=== PATIENT | female | born 1970 ===

== ENCOUNTER 2017-09-27 23:54 | Inpatient (IN) | payer MEDICAID ==
[2017-09-27 23:55] VITALS: BMI 24.9
[2017-09-28] MEDS ORDERED: Sodium Chloride 0.9% 1,000 ML IV STA (00:29)
[2017-09-28 00:49] LABS: BASO % 0.4 % (0.0-2.0); EOS % 0.5 % (0.0-4.0); HEMATOCRIT 44.6 % (34.0-47.0); LYMPH # 2.7 K/uL (1.0-4.3); LYMPH % 52.5 % (20.0-40.0); MEAN CELL VOLUME 96.8 fl (81.0-99.0); MEAN CORPUSCULAR HEMOGLOBIN 32.4 pg (27.0-31.0); MEAN CORPUSCULAR HGB CONC 33.5 g/dL (33.0-37.0); MEAN PLATELET VOLUME 7.5 fl (7.2-11.7); MONO # 0.4 K/uL (0.0-0.8); MONO % 8.6 % (0.0-10.0); NEUT # 1.9 K/uL (1.8-7.0); RED CELL DISTRIBUTION WIDTH 13.9 % (11.5-14.5); WHITE BLOOD COUNT 5.1 K/uL (4.8-10.8)
[2017-09-28 01:01] LABS: ALB/GLOB RATIO 1.3 (1.0-2.1); ALKALINE PHOSPHATASE 123 U/L (38-126); ALT/SGPT 36 U/L (9-52); AST/SGOT 40 U/L (14-36); BILIRUBIN,TOTAL 0.3 mg/dl (0.2-1.3); BLOOD UREA NITROGEN 18 mg/dl (7-17); CALCIUM 8.1 mg/dL (8.4-10.2); CARBON DIOXIDE 26 mmol/L (22-30); CHLORIDE 110 mmol/L (98-107); GFR AFRICAN-AMERICAN > 60; GLUCOSE,RANDOM 88 mg/dL (65-105); POTASSIUM 3.5 MMOL/L (3.6-5.0); SODIUM 150 mmol/l (132-148); TOTAL PROTEIN 7.5 G/DL (6.3-8.2)
[2017-09-28 01:13] LABS: ALCOHOL SERUM 332 mg/dl (0-10)
[2017-09-28 01:14] LABS: PARTIAL THROMBOPLASTIN TIME 24.8 Seconds (25.6-37.1)
--- NOTE | 2017-09-28 02:26 | ED PDOC ---
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 Mother states patient had been drinking throughout the day and witnessed her swallow a handful of various pills. Mother denies knowing how many pills were ingested. Notes that among the pills were Norvir, Hydrochlorothiazide, and Vistaril. Reports that immediately after ingestion, patient vomited (pills visible in vomit) and had diarrhea. Mother states she then called 911. Upon ED arrival, patient is verbal but unable to clearly answer provider's questions. Admits to suicidal intent. PCP: Jana Alvares Past Medical History Reviewed: Historical Data, Nursing Documentation, Vital Signs Vital Signs: Last Vital Signs Temp 98.9 F 09/28/17 00:24 Pulse 95 H 09/28/17 00:24 Resp 16 09/28/17 00:24 BP 128/79 09/28/17 00:24 Pulse Ox 98 09/28/17 00:24 - Medical History PMH: Anxiety, Asthma, Depression, HIV, HTN Denies: Diabetes, Hepatitis, Chronic Kidney Disease, Seizures, Sexually Transmitted Disease - Surgical History Surgical History: Appendectomy - Family History Family History: States: Unknown Family Hx - Living Arrangements Living Arrangements: With Family - Social History Drugs: Prescription medications - Home Medications Home Medications: Ambulatory Orders Medication Instructions Recorded Albuterol HFA [Ventolin HFA 90 2 puff IH Q4H PRN 01/17/16 mcg/actuation (8 g)] Darunavir [Prezista] 800 mg PO DAILY 01/17/16 Emtricitabine/Tenofovir Diso 1 tab PO DAILY 01/17/16 [Truvada 200 MG-300 MG] Citalopram Hydrobromide [Celexa] 10 mg PO DAILY #30 tablet 01/20/16 Folic Acid 1 mg PO DAILY #0 tab 01/20/16 LORazepam [Ativan] 2 mg PO Q4H PRN #5 tab 01/20/16 Multivitamin [Multi-Vitamin Daily] 1 tab PO DAILY #0 tablet 01/20/16 Ritonavir [Norvir] 100 mg PO DAILY #0 cap 01/20/16 Thiamine [Vitamin B1 Tab] 100 mg PO DAILY #0 tab 01/20/16 Citalopram [celEXA] 40 mg PO DAILY #30 tab 04/15/16 Thiamine [Vitamin B1 Tab] 100 mg PO DAILY #30 tab 04/15/16 traZODone [Desyrel] 100 mg PO HS PRN #30 tab 04/15/16 chlordiazePOXIDE [Chlordiazepoxide 25 mg PO TID PRN #6 cap 10/05/16 HCl] - Allergies Allergies/Adverse Reactions: Allergies Allergy/AdvReac Type Severity Reaction Status Date / Time No Known Allergies Allergy Verified 10/05/16 13:55 Review of Systems Review Of Systems: ROS cannot be obtained secondary to pt's inabilty to answer questions. Physical Exam - Reviewed Nursing Documentation Reviewed: Yes Vital Signs Reviewed: Yes - Physical Exam Appears: Positive for: Non-toxic Head Exam: Positive for: ATRAUMATIC, NORMOCEPHALIC Cardiovascular/Chest: Positive for: Regular Rate, Rhythm. Negative for: Murmur Respiratory: Positive for: Normal Breath Sounds. Negative for: Respiratory Distress Gastrointestinal/Abdominal: Positive for: Normal Exam Extremity: Positive for: Normal ROM. Negative for: Deformity Neurologic/Psych: Positive for: Aphasia (slurred speech). Negative for: Alert, Oriented - Laboratory Results Result Diagrams: 09/28/17 00:45 09/28/17 00:45 - ECG O2 Sat by Pulse Oximetry: 98 (RA) Pulse Ox Interpretation: Normal - Critical Care Total Time (In Min): 30 Medical Decision Making Medical Decision Makin Initial impression: status post overdose with suicidal intent Initial plan: * EKG * Acetaminophen * EtOH serum * Labs * UDrug screen * Magnesium * Salicylate * Poison control consult * Crisis eval * UPreg * PTT/PT * NS IV * Zofran Inj 4mg IV * 1:1 OBS * Accucheck * UA * Re-eval 0039 Glucose: 97 0700 Patient will be signed out to Dr. Heard pending sobriety and crisis evaluation. Scribe Attestation: Documented by Ely Martinez acting as a scribe for Simone Gibson MD. Scribe Attestation: All medical record entries made by the Scribe were at my direction and personally dictated by me. I have reviewed the chart and agree that the record accurately reflects my personal performance of the history, physical exam, medical decision making, and the department course for this patient. I have also personally directed, reviewed, and agree with the discharge instructions and disposition. Disposition - Clinical Impression Clinical Impression: Drug overdose, Alcohol abuse - Patient ED Disposition Is Patient to be Admitted: Transfer of Care - Disposition Referrals: Esdras Gutierrez MD [Primary Care Provider] - Disposition: Transfer of Care Disposition Time: 07:00 Condition: FAIR Patient Signed Over To: Awais Heard Handoff Comments: pending crisis eval and sobriety
--- NOTE | 2017-09-28 07:23 | ED PDOC ---
- Laboratory Results Result Diagrams: 09/28/17 00:45 09/28/17 00:45 - ECG O2 Sat by Pulse Oximetry: 98 (RA) Medical Decision Making Medical Decision Makin -Patient transferred to pa by Dr. Gibson, pending sobriety and crisis evaluation. Medically stable for psychiatric admission Disposition - Clinical Impression Clinical Impression: Drug overdose, Alcohol abuse, Suicide attempt - POA Present On Arrival: None - Disposition Referrals: Esdras Gutierrez MD [Primary Care Provider] - Disposition: Admitted as In-Patient Disposition Time: 11:24 Condition: FAIR
[2017-09-28] MEDS ORDERED: Magnesium Hydroxide Susp 30 ml UD PO PRN (16:48)
[2017-09-28] MEDS ORDERED: DiphenhydrAMINE 50 mg/ml Inj IM PRN (16:48)
[2017-09-28] MEDS ORDERED: Alum-Mag Hydrox-Simethicone Susp (30 mL) PO PRN (16:48)
[2017-09-28] MEDS ORDERED: Pneumococcal 23-Valent Vaccine IM ONE (16:57)
--- NOTE | 2017-09-28 17:52 | PCM.BM ---
Treatment assets and liabiliti Patient Assests: cooperative, ADL independent, negotiates basic needs Patient Liabilities: substance abuse, medical problems
--- NOTE | 2017-09-28 17:54 | PCM.BM ---
Treatment assets and liabiliti Patient Assests: cooperative, ADL independent, negotiates basic needs Patient Liabilities: substance abuse, medical problems - Milieu Protocol Maintain good personal hygiene: daily Encourage regular showers, daily Remind patient to perform daily oral care, daily Assist patient to perform ADL's Maintain personal safety: every shift Educate patient to report safety concerns to staff, every shift Monitor environment for contraband/sharps Medication safety: Monitor for expected outcome, potential side effects: every shift, Assess barriers to learning: every shift, Assess readiness for medication education: every shift
--- NOTE | 2017-09-28 18:04 | PCM.BM ---
<Kylie García Stephanie - Last Filed: 09/28/17 17:54> Treatment assets and liabiliti Patient Assests: cooperative, ADL independent, negotiates basic needs Patient Liabilities: substance abuse, medical problems - Milieu Protocol Maintain good personal hygiene: daily Encourage regular showers, daily Remind patient to perform daily oral care, daily Assist patient to perform ADL's Maintain personal safety: every shift Educate patient to report safety concerns to staff, every shift Monitor environment for contraband/sharps Medication safety: Monitor for expected outcome, potential side effects: every shift, Assess barriers to learning: every shift, Assess readiness for medication education: every shift Family Contact Family involvement: Family/SO is involved Family contact: Patient agrees to contact - Goals for Treatment Patient goals for treatment: To feel better and less depressed <Talia Michelle - Last Filed: 09/30/17 16:33> Treatment assets and liabiliti Patient Assests: adapts well, cooperative, ADL independent, physically healthy, negotiates basic needs, cognitively intact Patient Liabilities: poor support system, relationship conflicts, substance abuse, medical problems, other (possible homelessness upon discharge) Family Contact Family involvement: Family/SO is involved Family contact: Patient agrees to contact Family contact name: Chuy(son) ([phone]) Family contacted how many times per week?: 2 Family contact comment: Director Of Collections And Archives placed call to patients son to discuss precursors to patients admission, progress on 3NP and aftercare. Phone rang without option for editorial writer to leave voicemail. Director Of Collections And Archives to attempt call at later time. - Goals for Treatment Patient goals for treatment: Patient to continue stabilization on 3NP through medication management and group/supportive therapy. Patient to be encouraged to attend groups regularly to promote self-awareness, sobriety, and improve insight , coping skills and self-esteem. Patient to be provided with referral for appropriate level of aftercare to reduce risk of future hospitalizations and ensure safety in the community. Discharge/Continuing Care - Education Needs Education Needs: Patient Medication, Patient Coping Skills, Patient Community resources, Patient Aftercare Safety Plan - Discharge Discharge Criteria: Tolerates medication w/o severe side effects, Free of Suicidal thoughts, Free of agitation, Normal sleep pattern, Ability to care for self, No longer exhibiting s/s of withdrawal, Reduction of target symptoms Discharge to:: Home, Snf, Substance Abuse Rehab, Other (possible [facility] referrals in the event patient refuses inpatient rehab) <Odilon Chang - Last Filed: 10/01/17 13:08> Discharge/Continuing Care - Additional Comments 10/01/17 13:09 Pt reported that she feels better. - Treatment Team Participation Was Patient/Family/SO present at Treatment Team Meeting: Yes <Khalida Morgan - Last Filed: 10/04/17 10:01> - Diagnosis (1) Alcohol abuse Status: Acute Interventions: 10/01/17 17:45 motivational therapy referral to rehab
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
[2017-09-28] MEDS ORDERED: Emtricitabine-Tenofovir 200 mg-300 mg Tab PO ONE (21:10)
[2017-09-28] MEDS: Fluticasone-Salmeterol 100-50mcg Diskus INH SCH (22:26)
[2017-09-28] MEDS: Albuterol-Ipratrop 3 mg / 0.5 (3 ml) UD INH SCH (22:36)
[2017-09-29] MEDS ORDERED: Potassium Chloride 20 mEq ER Tab PO ONE (01:17)
[2017-09-29] MEDS: Albuterol-Ipratrop 3 mg / 0.5 (3 ml) UD INH SCH ×3 (01:28→16:16)
[2017-09-29 07:31] LABS: BLOOD UREA NITROGEN 10 mg/dl (7-17); CALCIUM 8.8 mg/dL (8.4-10.2); CARBON DIOXIDE 27 mmol/L (22-30); CHLORIDE 107 mmol/L (98-107); CHOLESTEROL 118 mg/dL (0-199); GFR AFRICAN-AMERICAN > 60; GLUCOSE,RANDOM 99 mg/dL (65-105); POTASSIUM 3.8 MMOL/L (3.6-5.0); SODIUM 143 mmol/l (132-148)
--- NOTE | 2017-09-29 11:53 | CARD ---
APPROVED REPORT EKG Measurement Heart [id number] <Conclusion> Sinus tachycardia Otherwise normal ECG
--- NOTE | 2017-09-29 11:59 | CARD ---
APPROVED REPORT EKG Measurement Heart [id number] <Conclusion> Sinus rhythm with premature atrial complexes Otherwise normal ECG
[2017-09-29] MEDS: Fluticasone-Salmeterol 100-50mcg Diskus INH SCH ×2 (13:00→17:04)
[2017-09-29] MEDS: Multivitamin With Minerals Tab PO SCH (13:00)
[2017-09-29] MEDS: Emtricitabine-Tenofovir 200 mg-300 mg Tab PO SCH (13:01)
[2017-09-29] MEDS: Olopatadine 0.1% Opht SOLN OU SCH ×2 (13:11→17:15)
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
[2017-09-29] MEDS: Fluticasone-Salmeterol 250-50mcg Diskus IH SCH (21:10)
[2017-09-29] MEDS: Pantoprazole 40 mg EC Tab PO SCH (21:36)
[2017-09-29 23:15] VITALS: O2SAT 99
[2017-09-30] MEDS: Albuterol-Ipratrop 3 mg / 0.5 (3 ml) UD INH SCH ×2 (01:22→16:38)
[2017-09-30] MEDS: Multivitamin With Minerals Tab PO SCH (09:29)
[2017-09-30] MEDS: Emtricitabine-Tenofovir 200 mg-300 mg Tab PO SCH (09:29)
[2017-09-30] MEDS: Fluticasone-Salmeterol 250-50mcg Diskus IH SCH ×2 (09:34→21:23)
[2017-09-30] MEDS: Olopatadine 0.1% Opht SOLN OU SCH ×2 (09:35→17:11)
[2017-09-30] MEDS: Pantoprazole 40 mg EC Tab PO SCH (17:09)
--- NOTE | 2017-09-30 18:21 | CP.PCM.PN ---
Subjective - Date & Time of Evaluation Date of Evaluation: 09/30/17 Time of Evaluation: 18:15 - Subjective Subjective: pt seen for chest pain page. s:pt seen and examined at bedside, NAD. Talking in full sentences. No signs of respiratory distress. Non-diaphoretic. Chest pain is located suprasternally and is reproducible to palpation. Pt denies any radiating pain, epigastric pain, acidic sensation, back pain, SOB, palpitations, N/V, diaphoresis, leg/calf pain. vitals reviewed, HR at bedside 92bpm PE: Gen: AAOx3, NAD, CVS: S1S2+, No MRG Lungs: CTA B/L, no WRR, chest pain reproducible to palpation A/P: -costochrondritis -Motrin ordered -will continue to monitor Objective - Vital Signs/Intake and Output Vital Signs (last 24 hours): Temp Pulse Resp BP Pulse Ox 98.2 F 123 H 20 153/105 H 99 09/30/17 16:09 09/30/17 16:09 09/30/17 16:09 09/30/17 16:09 09/29/17 22:00 - Medications Medications: Current Medications Acetaminophen (Tylenol 325mg Tab) 650 mg PO Q4 PRN PRN Reason: Pain, moderate (4-7) Last Admin: 09/29/17 21:38 Dose: 650 mg Al Hydrox/Mg Hydrox/Simethicone (Maalox Plus 30 Ml) 30 ml PO Q4 PRN PRN Reason: Dyspepsia Albuterol (Ventolin Hfa 90 Mcg/Actuation (8 G)) 2 puff INH Q4 PRN PRN Reason: Shortness of Breath Albuterol/Ipratropium (Duoneb 3 Mg/0.5 Mg (3 Ml) Ud) 3 ml INH RQ8 EDUARDO Last Admin: 09/30/17 16:38 Dose: 3 ml Aripiprazole (Abilify) 10 mg PO DAILY [facility] Chlordiazepoxide (Librium) 50 mg PO Q8 EDUARDO Last Admin: 09/30/17 17:09 Dose: 50 mg Darunavir (Prezista) 800 mg PO DAILY [facility] Last Admin: 09/30/17 09:29 Dose: 800 mg Diphenhydramine HCl (Benadryl) 50 mg IM Q6 PRN PRN Reason: Extrapyramidal S/S Unable PO Diphenhydramine HCl (Benadryl) 50 mg PO Q6 PRN PRN Reason: Extrapyramidal Symptoms Emtricitabine/Tenofovir (Truvada 200 Mg-300 Mg) 1 tab PO DAILY [facility] Last Admin: 09/30/17 09:29 Dose: 1 tab Enalapril Maleate (Vasotec) 10 mg PO DAILY [facility] Last Admin: 09/30/17 09:29 Dose: 10 mg Escitalopram Oxalate (Lexapro) 5 mg PO DAILY [facility] Last Admin: 09/30/17 09:29 Dose: 5 mg Folic Acid (Folic Acid) 1 mg PO DAILY [facility] Last Admin: 09/30/17 09:29 Dose: 1 mg Haloperidol (Haldol) 5 mg PO Q4 PRN PRN Reason: Agitation Haloperidol Lactate (Haldol) 5 mg IM Q4 PRN PRN Reason: Agitation, Unable to Take PO Ibuprofen (Motrin Tab) 600 mg PO Q8 PRN PRN Reason: Pain, moderate (4-7) Lorazepam (Ativan) 2 mg IM Q4 PRN PRN Reason: Anxiety/Agitation,Unable PO Lorazepam (Ativan) 2 mg PO Q4 PRN PRN Reason: Anxiety/Agitation Last Admin: 09/29/17 07:02 Dose: 2 mg Magnesium Hydroxide (Milk Of Magnesia) 30 ml PO HS PRN PRN Reason: Constipation Mirtazapine (Remeron) 15 mg PO HS [facility] Last Admin: 09/29/17 21:36 Dose: 15 mg Multivitamins/Minerals (Therapeutic-M Tab) 1 tab PO DAILY [facility] Last Admin: 09/30/17 09:29 Dose: 1 tab Olopatadine HCl (Patanol 0.1% Opht Soln) 1 drop OU BID [facility] Last Admin: 09/30/17 17:11 Dose: Not Given Pantoprazole Sodium (Protonix Ec Tab) 40 mg PO QPM [facility] Last Admin: 09/30/17 17:09 Dose: 40 mg Ritonavir (Norvir) 100 mg PO DAILY [facility] Last Admin: 09/30/17 09:28 Dose: 100 mg Fluticasone/Salmeterol (Advair Diskus 250/50) 1 puff IH Q12 [facility] Last Admin: 09/30/17 09:34 Dose: Not Given Thiamine HCl (Vitamin B1 Tab) 100 mg PO DAILY EDUARDO Last Admin: 09/30/17 09:29 Dose: 100 mg - Labs Labs: 09/28/17 00:45 09/29/17 06:30 PT 11.4 Seconds (9.8-13.1) 09/28/17 00:45 INR 1.0 (0.9-1.2) 09/28/17 00:45 APTT 24.8 Seconds (25.6-37.1) L 09/28/17 00:45
--- NOTE | 2017-09-30 18:32 | PCM.PYCHPN ---
Psychiatric Progress Note - Psychiatric Progress Note Patient seen today, length of contact: pt evaluated discussed with team chart reviewed Patient Chief Complaint: I AM DEPRESSED I HAVE NO PLACE TO GO Problems Identified/Issues Discussed: PT ON EVALUATION REPORTED DEPRESSED MOOD AND INCREASED ANXIETY, RELATES THAT TO HER CURRENT SITUATION NEITHER HER SON NOR HER MOTHER ARE ACCEPTING HER BACK SO SHE IS CURRENTLY HOMELESS, PT SHOWS LIMITED INSIGHT INTO HER ALCOHOL USE PROBLEM , CONTINUES TO BE ISOLATIVE NEEDS A LOT OF ENCORAGMENT TO ATTEND GROUPS , DENIED ANY CURRENT SUICIDAL OR HOMICIDAL IDEATIONS DENIED PERCEPTUAL DISTURBANCES NO REPORTED SIDE EFFECTS OF MEDICATIONS DSM 5 Symptoms Update: ALCOHOL INDUCED MOOD DISORDER WITH DEPRESSIVE FEATURES ALCOHOLUSE DISORDER DEPRESSION Medication Change: Yes (INCREASE ABILIFY DISCONTINUE LEXAPRO) Medical Record Reviewed: Yes Mental Status Examination - Cognitive Function Orientation: Person, Place Memory: Intact Attention: WNL Concentration: WNL Association: WNL Fund of Knowledge: Poor Decription of patient's judgement and insights: POOR IJUDGMENT LIMITED INSIGHT - Mood Mood: Depressed, Anxious - Affect Affect: Constricted, Depressed - Speech Speech: Soft - Formal Thought Process Formal Thought Process: Circumstantial Psychotic Thoughts and Behaviors: PT DENIED PSYCHOTIC SYMPTOMS NON ELICITED - Suicidal Ideation Suicidal Ideation: No - Homicidal Ideation Homicidal Ideation: No Goal/Treatment Plan - Goal/Treatment Plan Need for Continued Stay: Severe depression anxiety, Discharge may exacerbated symptoms Progress Toward Problem(s) and Goals/Treatment Plan: CONTINUE WITH LIBRIUM PROTOCOL, MONITOR PT FOR SYMPTOMS AND SIGNS OF WITHDRAWAL REMERON 15MG INCREASE ABILIFY TO 10 MG , DISCONTINUE LEXAPRO CBT AND MOTIVATIONAL THERAPY REFERRAL TO REHAB ON DISCHARGE Estimated Date of D/C: 10/06/17
[2017-10-01] MEDS: Albuterol-Ipratrop 3 mg / 0.5 (3 ml) UD INH SCH ×3 (01:03→17:03)
[2017-10-01] MEDS: Emtricitabine-Tenofovir 200 mg-300 mg Tab PO SCH (09:19)
[2017-10-01] MEDS: Multivitamin With Minerals Tab PO SCH (09:19)
[2017-10-01] MEDS: Fluticasone-Salmeterol 250-50mcg Diskus IH SCH ×2 (09:20→21:21)
[2017-10-01] MEDS: Olopatadine 0.1% Opht SOLN OU SCH ×2 (09:29→18:12)
--- NOTE | 2017-10-01 16:04 | CP.PCM.PN ---
Subjective - Date & Time of Evaluation Date of Evaluation: 10/01/17 Time of Evaluation: 15:00 - Subjective Subjective: Pt. seen at bedside lying down with covers on. Pt. awakes on calling her name outloud. Pt. with no complaints at this time. No overnight event reported. Pt. states she is doing well. Objective - Vital Signs/Intake and Output Vital Signs (last 24 hours): Temp Pulse Resp BP Pulse Ox 98.0 F 109 H 18 125/93 H 99 10/01/17 09:00 10/01/17 09:00 10/01/17 09:00 10/01/17 09:00 09/29/17 22:00 - Medications Medications: Current Medications Acetaminophen (Tylenol 325mg Tab) 650 mg PO Q4 PRN PRN Reason: Pain, moderate (4-7) Last Admin: 09/30/17 19:00 Dose: 650 mg Al Hydrox/Mg Hydrox/Simethicone (Maalox Plus 30 Ml) 30 ml PO Q4 PRN PRN Reason: Dyspepsia Albuterol (Ventolin Hfa 90 Mcg/Actuation (8 G)) 2 puff INH Q4 PRN PRN Reason: Shortness of Breath Albuterol/Ipratropium (Duoneb 3 Mg/0.5 Mg (3 Ml) Ud) 3 ml INH RQ8 [facility] Last Admin: 10/01/17 09:30 Dose: Not Given Aripiprazole (Abilify) 10 mg PO DAILY [facility] Last Admin: 10/01/17 09:19 Dose: 10 mg Chlordiazepoxide (Librium) 50 mg PO Q8 [facility] Last Admin: 10/01/17 09:22 Dose: 50 mg Darunavir (Prezista) 800 mg PO DAILY [facility] Last Admin: 10/01/17 09:19 Dose: 800 mg Diphenhydramine HCl (Benadryl) 50 mg IM Q6 PRN PRN Reason: Extrapyramidal S/S Unable PO Diphenhydramine HCl (Benadryl) 50 mg PO Q6 PRN PRN Reason: Extrapyramidal Symptoms Emtricitabine/Tenofovir (Truvada 200 Mg-300 Mg) 1 tab PO DAILY [facility] Last Admin: 10/01/17 09:19 Dose: 1 tab Enalapril Maleate (Vasotec) 10 mg PO DAILY [facility] Last Admin: 10/01/17 10:38 Dose: 10 mg Folic Acid (Folic Acid) 1 mg PO DAILY [facility] Last Admin: 10/01/17 09:19 Dose: 1 mg Haloperidol (Haldol) 5 mg PO Q4 PRN PRN Reason: Agitation Haloperidol Lactate (Haldol) 5 mg IM Q4 PRN PRN Reason: Agitation, Unable to Take PO Ibuprofen (Motrin Tab) 600 mg PO Q8 PRN PRN Reason: Pain, moderate (4-7) Lorazepam (Ativan) 2 mg IM Q4 PRN PRN Reason: Anxiety/Agitation,Unable PO Lorazepam (Ativan) 2 mg PO Q4 PRN PRN Reason: Anxiety/Agitation Last Admin: 09/29/17 07:02 Dose: 2 mg Magnesium Hydroxide (Milk Of Magnesia) 30 ml PO HS PRN PRN Reason: Constipation Mirtazapine (Remeron) 15 mg PO HS [facility] Last Admin: 09/30/17 21:23 Dose: 15 mg Multivitamins/Minerals (Therapeutic-M Tab) 1 tab PO DAILY [facility] Last Admin: 10/01/17 09:19 Dose: 1 tab Olopatadine HCl (Patanol 0.1% Opht Soln) 1 drop OU BID [facility] Last Admin: 10/01/17 09:29 Dose: 0.1 % Pantoprazole Sodium (Protonix Ec Tab) 40 mg PO QPM [facility] Last Admin: 09/30/17 17:09 Dose: 40 mg Ritonavir (Norvir) 100 mg PO DAILY [facility] Last Admin: 10/01/17 09:19 Dose: 100 mg Fluticasone/Salmeterol (Advair Diskus 250/50) 1 puff IH Q12 [facility] Last Admin: 10/01/17 09:20 Dose: 1 puff Thiamine HCl (Vitamin B1 Tab) 100 mg PO DAILY [facility] Last Admin: 10/01/17 09:19 Dose: 100 mg - Labs Labs: 09/28/17 00:45 09/29/17 06:30 PT 11.4 Seconds (9.8-13.1) 09/28/17 00:45 INR 1.0 (0.9-1.2) 09/28/17 00:45 APTT 24.8 Seconds (25.6-37.1) L 09/28/17 00:45 - Constitutional Appears: Non-toxic, No Acute Distress - Head Exam Head Exam: ATRAUMATIC, NORMOCEPHALIC - Eye Exam Eye Exam: Normal appearance. absent: Scleral icterus - Neck Exam Neck Exam: Full ROM - Respiratory Exam Respiratory Exam: Clear to Ausculation Bilateral, NORMAL BREATHING PATTERN - Cardiovascular Exam Cardiovascular Exam: REGULAR RHYTHM, +S1, +S2 - GI/Abdominal Exam GI & Abdominal Exam: Soft. absent: Tenderness - Extremities Exam Extremities Exam: Normal Capillary Refill. absent: Calf Tenderness - Neurological Exam Neurological Exam: Alert, Awake, Oriented x3 - Psychiatric Exam Psychiatric exam: Flat Affect Assessment and Plan - Assessment and Plan (Free Text) Assessment: 46 y/o F with PMHx of HIV infection w/o AIDS, Asthma, Hypertension, Depression , Anxiety, alcohol abuse being admitted in Psych unit for suicidal attempt. Plan: Asthma- Stable -Mild persistent asthma -Duoneb PRN -c/w Advair Abnormal electrolytes- Resolved -K+: 143 -NA+: 3.8 HTN- stable -c/w home enalapril 10 mg HIV -c/w [id number] therapy Alcohol abuse - -CIWA score 0 -Discontinue Librium -Ativan PRN Diet -Regular Depression with Suicidal Attempt -manage by Psych DVT prophylaxis -encourage ambulation
--- NOTE | 2017-10-01 17:50 | PCM.PYCHPN ---
Psychiatric Progress Note - Psychiatric Progress Note Patient seen today, length of contact: pt evaluated discussed with team chart reviewed Patient Chief Complaint: I AM worried about my living situation Problems Identified/Issues Discussed: PT ON EVALUATION, MORE KEMPT AND LESS ISOLATIVE, ATTENDING GROUPS, REPORTED MOOD LESS DEPRESSED, CONTINUES TO BE ANXIOUS IN REFERENCE TO HER LIVING SITUATION, DENIED ANY CURRENT SUICIDAL OR HOMICIDAL IDEATIONS DENIEDD PERCEPTUAL DISTURBANCES, REPORTED FEELING BETTER WITH ABILIFY NO REPORTED SIDE EFFECTS OF MEDICATIONS Medication Change: No Medical Record Reviewed: Yes Mental Status Examination - Cognitive Function Orientation: Person, Place Memory: Intact Attention: WNL Concentration: WNL Association: WNL Fund of Knowledge: Poor Decription of patient's judgement and insights: POOR IJUDGMENT LIMITED INSIGHT - Mood Mood: Depressed, Anxious, Neutral - Affect Affect: Constricted, Depressed - Speech Speech: Appropriate, Soft - Formal Thought Process Formal Thought Process: Circumstantial Psychotic Thoughts and Behaviors: PT DENIED PSYCHOTIC SYMPTOMS NON ELICITED - Suicidal Ideation Suicidal Ideation: No - Homicidal Ideation Homicidal Ideation: No Goal/Treatment Plan - Goal/Treatment Plan Need for Continued Stay: Severe depression anxiety, Discharge may exacerbated symptoms Progress Toward Problem(s) and Goals/Treatment Plan: REMERON 15MG CONTINUE ABILIFY 10 MG CBT AND MOTIVATIONAL THERAPY REFERRAL TO REHAB ON DISCHARGE Estimated Date of D/C: 10/06/17
[2017-10-02] MEDS: Fluticasone-Salmeterol 250-50mcg Diskus IH SCH ×2 (09:48→21:03)
[2017-10-02] MEDS: Emtricitabine-Tenofovir 200 mg-300 mg Tab PO SCH (09:50)
[2017-10-02] MEDS: Olopatadine 0.1% Opht SOLN OU SCH ×2 (09:52→18:23)
--- NOTE | 2017-10-02 13:43 | PCM.PYCHPN ---
Psychiatric Progress Note - Psychiatric Progress Note Patient seen today, length of contact: pt evaluated discussed with team chart reviewed Patient Chief Complaint: I AM LESS ANXIOUS Problems Identified/Issues Discussed: PT ON EVALUATION, MORE KEMPT AND LESS ISOLATIVE, ATTENDING GROUPS, REPORTED MOOD LESS DEPRESSED, CONTINUES TO BE ANXIOUS IN REFERENCE TO HER LIVING SITUATION, DENIED ANY CURRENT SUICIDAL OR HOMICIDAL IDEATIONS DENIEDD PERCEPTUAL DISTURBANCES, REPORTED FEELING BETTER WITH ABILIFY NO REPORTED SIDE EFFECTS OF MEDICATIONS Medication Change: No Medical Record Reviewed: Yes Mental Status Examination - Cognitive Function Orientation: Person, Place Memory: Intact Attention: WNL Concentration: WNL Association: WNL Fund of Knowledge: Poor Decription of patient's judgement and insights: POOR IJUDGMENT LIMITED INSIGHT - Mood Mood: Depressed, Anxious, Neutral - Affect Affect: Constricted, Depressed - Speech Speech: Appropriate, Soft - Formal Thought Process Formal Thought Process: Circumstantial Psychotic Thoughts and Behaviors: PT DENIED PSYCHOTIC SYMPTOMS NON ELICITED - Suicidal Ideation Suicidal Ideation: No - Homicidal Ideation Homicidal Ideation: No Goal/Treatment Plan - Goal/Treatment Plan Need for Continued Stay: Severe depression anxiety, Discharge may exacerbated symptoms Progress Toward Problem(s) and Goals/Treatment Plan: REMERON 15MG CONTINUE ABILIFY 10 MG CBT AND MOTIVATIONAL THERAPY REFERRAL TO REHAB ON DISCHARGE Estimated Date of D/C: 10/06/17
[2017-10-02 16:32] VITALS: RESP 20
[2017-10-03] MEDS: Albuterol HFA 90 mcg/actuation (8 g) INH PRN ×2 (05:41→15:28)
[2017-10-03] MEDS: Emtricitabine-Tenofovir 200 mg-300 mg Tab PO SCH (08:40)
[2017-10-03] MEDS: Fluticasone-Salmeterol 250-50mcg Diskus IH SCH ×2 (08:41→21:03)
[2017-10-03] MEDS: Olopatadine 0.1% Opht SOLN OU SCH ×2 (08:41→18:39)
--- NOTE | 2017-10-03 12:25 | PCM.PYCHPN ---
Psychiatric Progress Note - Psychiatric Progress Note Patient seen today, length of contact: pt evaluated discussed with team chart reviewed Patient Chief Complaint: I am feeling better today Problems Identified/Issues Discussed: PT ON EVALUATION, MORE KEMPT AND LESS ISOLATIVE, ATTENDING GROUPS, REPORTED MOOD LESS DEPRESSED, CONTINUES FEELS LESS ANXIOUS SHE WAS ABLE TO LIVE WITH A FRIEND UPON DISCHARGE DENIED ANY CURRENT SUICIDAL OR HOMICIDAL IDEATIONS DENIEDD PERCEPTUAL DISTURBANCES, NO REPORTED SIDE EFFECTS OF MEDICATIONS DSM 5 Symptoms Update: BIPOLAR DISORDER ALCOHOL USE DISORDER Medication Change: Yes (DECREASE REMERON) Medical Record Reviewed: Yes Mental Status Examination - Cognitive Function Orientation: Person, Place Memory: Intact Attention: WNL Concentration: WNL Association: WNL Fund of Knowledge: Poor Decription of patient's judgement and insights: POOR IJUDGMENT LIMITED INSIGHT - Mood Mood: Depressed, Anxious, Neutral - Affect Affect: Constricted, Depressed - Speech Speech: Appropriate - Formal Thought Process Formal Thought Process: No Impairment Psychotic Thoughts and Behaviors: PT DENIED PSYCHOTIC SYMPTOMS NON ELICITED - Suicidal Ideation Suicidal Ideation: No - Homicidal Ideation Homicidal Ideation: No Goal/Treatment Plan - Goal/Treatment Plan Need for Continued Stay: Severe depression anxiety, Discharge may exacerbated symptoms Progress Toward Problem(s) and Goals/Treatment Plan: DECREASE REMERON TO 7.5 MG QHS CONTINUE ABILIFY 10 MG CBT AND MOTIVATIONAL THERAPY REFERRAL TO REHAB ON DISCHARGE Estimated Date of D/C: 10/06/17
[2017-10-04 07:06] LABS: RBC URINE < 1 /hpf (0-3); URINE BILIRUBIN NEGATIVE (NEGATIVE); URINE BLOOD NEGATIVE (NEGATIVE); URINE COLOR STRAW (YELLOW); URINE GLUCOSE (UA) NEG (Normal); URINE KETONE NEGATIVE (NEGATIVE); URINE LEUKOCYTE ESTERASE NEG Leu/uL (Negative); URINE PROTEIN NEGATIVE (NEGATIVE); URINE UROBILINOGEN 0.2-1.0 mg/dL (0.2-1.0); WBC URINE < 1 /hpf (0-5)
[2017-10-04] MEDS: Emtricitabine-Tenofovir 200 mg-300 mg Tab PO SCH (08:43)
[2017-10-04] MEDS: Fluticasone-Salmeterol 250-50mcg Diskus IH SCH (08:45)
[2017-10-04 09:32] VITALS: BP 133/95; PULSE 94; TEMP 96.6
--- NOTE | 2017-10-04 11:29 | PCM.PYCHDC ---
Mental Status Examination - Mental Status Examination Orientation: Person, Place Memory: Intact Mood: Neutral Affect: Broad Speech: Appropriate Attention: WNL Concentration: WNL Association: WNL Fund of Knowledge: WNL Formal Thought Process: No Impairment Description of patient's judgement and insight: partial insight and poor judgment Psychotic Thoughts and Behaviors: PT DENIED PSYCHOTIC SYMPTOMS NON ELICITED Suicidal Ideation: No Current Homicidal Ideation?: No Discharge Summary - Discharge Note Reason for Hospitalization: PT SIGNED VOLUNTARY atient is a 46 y/o female referred by police/EMS after patient was found outside her mother's building intoxicated, naked snd with feces in her body. Patient attempted suicide by injesting a hand full of pills in the presence of her mother. Patient stated that she had an argument with her son causing her to drink and attempted suicide. Patient is presently in treatment at the [facility] under the care of Mika Gunderson. attempted many times. Patient admitted getting violent when she is intoxicated. PT RELATED HER RECENT DEPRESSION TO CONFLICT WITH HER FAMILY CONTINUES TO REPORT PASSIVE SUICIDAL IDEATION STATING SHE HAS NO DESIRE TO LIVE WITH NO PLAN ON THE UNIT .DENIED HOMICIDAL IDEATIONS DENIED PSYCHOTIC SYMPTOMS Laboratory Data: Abnormal Lab Results 10/04/17 06:40 Urine Color Straw Urine Clarity Clear Urine pH 6.0 Ur Specific [place] 1.008 Urine Protein Negative Urine Glucose (UA) Neg Urine Ketones Negative Urine Blood Negative Urine Nitrate Negative Urine Bilirubin Negative Urine Urobilinogen 0.2-1.0 Ur Leukocyte Esterase Neg Urine RBC (Auto) < 1 Urine Microscopic WBC < 1 Ur Squamous Epith Cells < 1 Consultations:: List each consultation separately and include: 1. Reason for request. 2. Findings. 3. Follow-up Summary of Hospital Course include:: 1. Description of specific treatment plan utilized for patients during their course of treatmen. 2. Summarize the time- course for resolution of acute symptoms and/or regressed behaviors. 3. Describe issues identified and worked on during hospitalization. 4. Describe medication utilized. 5. Describe medical problems identified and treated. 6. Reassessment of suicide risk Summary of Hospital Course: Patient is a 46 y/o female referred by police/EMS after patient was found outside her mother's building intoxicated, naked snd with feces in her body. Patient attempted suicide by injesting a hand full of pills in the presence of her mother. Patient stated that she had an argument with her son causing her to drink and attempted suicide. Patient is presently in treatment at the [facility] in [place] under the care of Mika Gunderson. attempted many times. Patient admitted getting violent when she is intoxicated. PT RELATED HER RECENT DEPRESSION TO CONFLICT WITH HER FAMILY CONTINUES TO REPORT PASSIVE SUICIDAL IDEATION STATING SHE HAS NO DESIRE TO LIVE WITH NO PLAN ON THE UNIT .DENIED HOMICIDAL IDEATIONS DENIED PSYCHOTIC SYMPTOMS - Diagnosis (1) Alcohol abuse Current Visit: Yes Status: Acute - Final Diagnosis (DSM 5) Condition upon Discharge: STABLE DSM 5: bipolar disorder alcohol use disorder alcohol induced mood disorder Disposition: HOME/ ROUTINE Follow-up Treatment Plan: follow up at outpatient Prescriptions/Medication Reconciliation: ARIPiprazole [Abilify] 10 mg PO DAILY 30 Days #30 tab Mirtazapine [Remeron] 7.5 mg PO HS 30 Days #15 tab - Antipsychotic Medications Pt discharged on 2 or more routine antipsychotic medications: No
== END 2017-10-04 13:30 | disposition home or self-care (01) | DRG 430 ==
LOC: H.ER 23:54 → H.ERHOLD 09-28 11:25 → H.PSYCH 09-28 15:40
PROVIDERS: ADMIT Psychiatry & Neurology Psychiatry; ATTEND Psychiatry & Neurology Psychiatry
PROC: GZHZZZZ Group Psychotherapy (ICD-10-PCS; principal; 2017-09-28)
PROC: HZ52ZZZ Individual Psychotherapy for Substance Abuse Treatment, Cognitive-Behavioral (ICD-10-PCS; 2017-09-28)
PROC: HZ57ZZZ Individual Psychotherapy for Substance Abuse Treatment, Motivational Enhancement (ICD-10-PCS; 2017-09-28)
DX: F31.9 Bipolar disorder, unspecified (principal); F10.94 Alcohol use, unspecified with alcohol-induced mood disorder; I10 Essential (primary) hypertension; Z21 Asymptomatic human immunodeficiency virus [HIV] infection status; F10.929 Alcohol use, unspecified with intoxication, unspecified; J45.30 Mild persistent asthma, uncomplicated; Y90.8 Blood alcohol level of 240 mg/100 ml or more; Z63.9 Problem related to primary support group, unspecified; Z87.891 Personal history of nicotine dependence; M94.0 Chondrocostal junction syndrome [Tietze]

== ENCOUNTER 2017-12-26 21:03 | Emergency (ER) | payer MEDICAID ==
[2017-12-26 21:03] VITALS: BMI 24.9
[2017-12-26 21:31] VITALS: BP 110/78; PULSE 98; RESP 20; TEMP 98.8; O2SAT 99
--- NOTE | 2017-12-26 22:32 | ED PDOC ---
HPI: Abdomen Time Seen by Provider: 12/26/17 21:47 Chief Complaint (Nursing): Abdominal Pain Chief Complaint (Provider): Abdominal Pain History Per: Patient History/Exam Limitations: no limitations Onset/Duration Of Symptoms: Hrs (x1), Sudden Onset Current Symptoms Are (Timing): Still Present Additional Complaint(s): 47 year old female with medical history of asthma and HIV, who presents to the emergency department with sudden onset of lower abdominal pain radiating to lower back associated with chills, diarrhea and painful urination occurring 1 hour prior to arrival. Denied any fever. PMD: none provided Past Medical History Reviewed: Historical Data, Nursing Documentation, Vital Signs Vital Signs: Last Vital Signs Temp 98.8 F 12/26/17 21:29 Pulse 98 H 12/26/17 21:29 Resp 20 12/26/17 21:29 BP 110/78 12/26/17 21:29 Pulse Ox 99 12/28/17 10:54 - Medical History PMH: Anxiety, Arthritis, Asthma, Depression (overdose last year at [facility]), HIV, HTN, Sexually Transmitted Disease (HIV sexually transmitted) Denies: Bronchitis, Diabetes, Hepatitis, Chronic Kidney Disease, Seizures - Surgical History Surgical History: Appendectomy - Family History Family History: States: Unknown Family Hx - Social History Current smoker - smoking cessation education provided: No Drugs: Denies - Home Medications Home Medications: Ambulatory Orders Medication Instructions Recorded Darunavir [Prezista] 800 mg PO DAILY 01/17/16 Emtricitabine/Tenofovir Diso 1 tab PO DAILY 01/17/16 [Truvada 200 MG-300 MG] Folic Acid 1 mg PO DAILY #0 tab 01/20/16 Ritonavir [Norvir] 100 mg PO DAILY #0 cap 01/20/16 Thiamine [Vitamin B1 Tab] 100 mg PO DAILY #0 tab 01/20/16 Albuterol Sulfate [Proair Hfa] 2 puff INH Q4 PRN 09/28/17 Enalapril Maleate [Vasotec] 10 mg PO DAILY 09/28/17 Fluticasone/Salmeterol 100/50 1 puff INH BID 09/28/17 [Advair Diskus 100/50] Multivit,Iron,Min 5/Folic Acid 1 tab PO DAILY 09/28/17 [Strovite Forte Caplet] Olopatadine HCl [Pataday] 1 drop OU BID 09/28/17 Omeprazole Magnesium [Prilosec Otc] 40 mg PO QPM 09/28/17 ARIPiprazole [Abilify] 10 mg PO DAILY 30 Days #30 tab 10/04/17 Fluticasone/Salmeterol 250/50 1 puff IH Q12 puff 10/04/17 [Advair Diskus 250/50] Mirtazapine [Remeron] 7.5 mg PO HS 30 Days #15 tab 10/04/17 Ciprofloxacin HCl [Cipro] 500 mg PO BID #20 tab 12/27/17 - Allergies Allergies/Adverse Reactions: Allergies Allergy/AdvReac Type Severity Reaction Status Date / Time No Known Allergies Allergy Verified 10/05/16 13:55 Review of Systems ROS Statement: Except As Marked, All Systems Reviewed And Found Negative Constitutional: Positive for: Chills. Negative for: Fever Gastrointestinal: Positive for: Abdominal Pain (lower), Diarrhea Genitourinary Female: Positive for: Dysuria Musculoskeletal: Positive for: Back Pain (lower) Physical Exam - Reviewed Nursing Documentation Reviewed: Yes Vital Signs Reviewed: Yes - Physical Exam Appears: Positive for: Non-toxic, Uncomfortable Skin: Positive for: Normal Color, Warm, Dry Neck: Positive for: Normal Cardiovascular/Chest: Positive for: Regular Rate, Rhythm, Chest Non Tender Respiratory: Positive for: Normal Breath Sounds. Negative for: Decreased Breath Sounds, Respiratory Distress Gastrointestinal/Abdominal: Positive for: Normal Exam, Soft. Negative for: Tenderness Back: Positive for: R CVA Tenderness. Negative for: L CVA Tenderness Extremity: Positive for: Normal ROM Neurologic/Psych: Positive for: Alert, Oriented - Laboratory Results Result Diagrams: 12/26/17 22:37 12/26/17 22:37 - ECG O2 Sat by Pulse Oximetry: 99 (RA) Pulse Ox Interpretation: Normal Medical Decision Making Medical Decision Making: Initial Impression: abdominal pain rule out kidney stone Initial Plan: * CMP * CBC * Urine C&S * UA 2356 CT FINDINGS Lower thorax: Minimal atelectasis. Few calcified granulomas. ABDOMEN: Liver: Few calcifications. Gallbladder and bile ducts: Calcified gallstones. No significant ductal dilation. Pancreas: Unremarkable. No ductal dilation. Spleen: No splenomegaly. Adrenals: Mild hypertrophy of adrenal glands. Kidneys and ureters: Mild stranding about RIGHT kidney. No renal calculi. Minimal pelvocaliectasis of RIGHT kidney. Minimally dilated RIGHT ureter. Mild stranding about RIGHT ureter. Stomach and bowel: No definite mural thickening. No obstruction. Appendix: No findings to suggest acute appendicitis. PELVIS: Bladder: Apparent mild bladder wall thickening. Incomplete distention, limiting evaluation. No stones. Reproductive: Small ovarian follicles. ABDOMEN and PELVIS: Intraperitoneal space: Trace free fluid within pelvis. No free air. Bones/joints: Few healing rib fractures. Soft tissues: Unremarkable. Vasculature: Unremarkable. No aneurysm. Lymph nodes: No pathologically enlarged lymph nodes. IMPRESSION: 1. Right hydroureteronephrosis without CT evidence of obstructing calculus. DDX : obstructing radiolucent stone, recently passed ureteral calculus, ureteral stricture, infection, obstructing ureteral mass. Clinical correlation and follow up are recommended. 2. Mild cystitis vs underdistention. Correlate with urinalysis. 3. Incidental/non-acute findings are described above. 0400 Upon re-evaluation patient notes marked improvement in symptoms. pt aware of CT report. Patient is stable for discharge home. Dx: UTI, passed kidney stone/other possibilities as aboce Patient will follow up with PCP in 1-2 days. and from there follow up with urologist as well for other findings. Scribe Attestation: Documented by Melanie Colon and Ely Martinez, acting as a scribe for Hunter Gates MD. Provider Scribe Attestation: All medical record entries made by the Scribe were at my direction and personally dictated by me. I have reviewed the chart and agree that the record accurately reflects my personal performance of the history, physical exam, medical decision making, and the department course for this patient. I have also personally directed, reviewed, and agree with the discharge instructions and disposition. Disposition - Clinical Impression Clinical Impression: UTI (urinary tract infection) - Patient ED Disposition Is Patient to be Admitted: No Counseled Patient/Family Regarding: Studies Performed, Diagnosis, Need For Followup - Disposition Referrals: [facility] [Outside] [facility] [Outside] Disposition: Routine/Home Disposition Time: 04:00 Condition: IMPROVED Additional Instructions: follow up with your primary doctor in 1-2 days return to the ED with any worsening or concerning symptoms Prescriptions: Ciprofloxacin HCl [Cipro] 500 mg PO BID #20 tab Instructions: Urinary Tract Infection in Women (ED) Forms: [employer] ([employer])
[2017-12-26 22:46] LABS: BASO # 0.1 K/uL (0.0-0.2); BASO % 0.7 % (0.0-2.0); EOS % 0.2 % (0.0-4.0); HEMOGLOBIN 13.5 g/dL (12.0-16.0); LYMPH # 1.9 K/uL (1.0-4.3); LYMPH % 17.5 % (20.0-40.0); MEAN CELL VOLUME 95.6 fl (81.0-99.0); MEAN CORPUSCULAR HEMOGLOBIN 32.7 pg (27.0-31.0); MEAN CORPUSCULAR HGB CONC 34.2 g/dL (33.0-37.0); MEAN PLATELET VOLUME 7.9 fl (7.2-11.7); MONO # 1.1 K/uL (0.0-0.8); MONO % 10.3 % (0.0-10.0); NEUT # 7.6 K/uL (1.8-7.0); NEUT % 71.3 % (50.0-75.0); RBC 4.11 Mil/uL (3.80-5.20); RED CELL DISTRIBUTION WIDTH 13.3 % (11.5-14.5); WHITE BLOOD COUNT 10.7 K/uL (4.8-10.8)
[2017-12-26 23:00] LABS: ALB/GLOB RATIO 1.2 (1.0-2.1); ALBUMIN 4.2 g/dL (3.5-5.0); ALT/SGPT 21 U/L (9-52); AST/SGOT 24 U/L (14-36); BLOOD UREA NITROGEN 10 mg/dl (7-17); CALCIUM 9.2 mg/dL (8.4-10.2); GFR AFRICAN-AMERICAN > 60; GFR NON-AFRICAN AMERICAN > 60
[2017-12-26 23:08] LABS: SQUAMOUS EPITHIAL 4 /hpf (0-5); URINE BACTERIA FEW (<OCC); URINE BILIRUBIN NEGATIVE (NEGATIVE); URINE BLOOD SMALL (NEGATIVE); URINE CLARITY TURBID (Clear); URINE COLOR AMBER (YELLOW); URINE GLUCOSE (UA) NEG (Normal); URINE LEUKOCYTE ESTERASE LARGE Leu/uL (Negative); URINE NITRATE NEGATIVE (NEGATIVE); URINE PROTEIN 100 mg/dL (NEGATIVE); URINE UROBILINOGEN 0.2-1.0 mg/dL (0.2-1.0)
--- NOTE | 2017-12-26 23:56 | CT ---
EXAM: CT Abdomen and Pelvis Without Intravenous Contrast CLINICAL HISTORY: 47 years old, female; Pain; Abdominal pain; Flank; Right; Prior surgery; Surgery date: 6+ months; Surgery type: Appendectomy; Additional info: Abd pain r flank TECHNIQUE: Axial computed tomography images of the abdomen and pelvis without intravenous contrast. All CT scans at this facility use one or more dose reduction techniques, viz.: automated exposure control; ma/kV adjustment per patient size (including targeted exams where dose is matched to indication; i.e. head); or iterative reconstruction technique. Coronal and sagittal reformatted images were created and reviewed. COMPARISON: CT - ABD PELVIS PO IV CONTRAST 2014-09-10 15:40 FINDINGS: Lower thorax: Minimal atelectasis. Few calcified granulomas. ABDOMEN: Liver: Few calcifications. Gallbladder and bile ducts: Calcified gallstones. No significant ductal dilation. Pancreas: Unremarkable. No ductal dilation. Spleen: No splenomegaly. Adrenals: Mild hypertrophy of adrenal glands. Kidneys and ureters: Mild stranding about RIGHT kidney. No renal calculi. Minimal pelvocaliectasis of RIGHT kidney. Minimally dilated RIGHT ureter. Mild stranding about RIGHT ureter. Stomach and bowel: No definite mural thickening. No obstruction. Appendix: No findings to suggest acute appendicitis. PELVIS: Bladder: Apparent mild bladder wall thickening. Incomplete distention, limiting evaluation. No stones. Reproductive: Small ovarian follicles. ABDOMEN and PELVIS: Intraperitoneal space: Trace free fluid within pelvis. No free air. Bones/joints: Few healing rib fractures. Soft tissues: Unremarkable. Vasculature: Unremarkable. No aneurysm. Lymph nodes: No pathologically enlarged lymph nodes. IMPRESSION: 1. Right hydroureteronephrosis without CT evidence of obstructing calculus. DDX: obstructing radiolucent stone, recently passed ureteral calculus, ureteral stricture, infection, obstructing ureteral mass. Clinical correlation and follow up are recommended. 2. Mild cystitis vs underdistention. Correlate with urinalysis. 3. Incidental/non-acute findings are described above.
[2017-12-27] MEDS ORDERED: Morphine 4 MG/ML VIAL IV ONE (04:11)
== END 2017-12-27 04:46 | disposition home or self-care (01) ==
LOC: H.ER 21:03
DX: N39.0 Urinary tract infection, site not specified (principal); F32.9 Major depressive disorder, single episode, unspecified; F41.9 Anxiety disorder, unspecified; I10 Essential (primary) hypertension; N13.5 Crossing vessel and stricture of ureter without hydronephrosis

== ENCOUNTER 2018-02-09 17:59 | Emergency (ER) | payer MEDICAID ==
[2018-02-09 18:00] VITALS: BMI 24.9
--- NOTE | 2018-02-09 18:34 | ED PDOC ---
Lower Extremity Pain/Injury Time Seen by Provider: 02/09/18 18:26 Chief Complaint (Nursing): Lower Extremity Problem/Injury Chief Complaint (Provider): ankle pain History Per: Patient History/Exam Limitations: no limitations Onset/Duration Of Symptoms: Days (4) Current Symptoms Are (Timing): Still Present Additional Complaint(s): Pt. with b/l ankle pain for 4 days. Twisted her left ankle 4 days ago accidentally outside. Pt. did not hurt head, back, hips, or other areas. Pt. ambulated after. no numbness, tingles, weakness. went to [place] at that time and had neg x-ray of left ankle. Has not taken any meds for the pain. Ambulating with pain. No new injury. Past Medical History Reviewed: Nursing Documentation, Vital Signs Vital Signs: Last Vital Signs Temp 98.1 F 02/09/18 18:10 Pulse 92 H 02/09/18 18:10 Resp 18 02/09/18 18:10 BP Pulse Ox 97 02/09/18 18:10 - Medical History PMH: Anxiety, Arthritis, Asthma, Depression (overdose last year at [facility]), HIV, HTN, Sexually Transmitted Disease (HIV sexually transmitted) Denies: Bronchitis, Diabetes, Hepatitis, Chronic Kidney Disease, Seizures - Surgical History Surgical History: Appendectomy - Family History Family History: States: Unknown Family Hx - Home Medications Home Medications: Ambulatory Orders Medication Instructions Recorded Darunavir [Prezista] 800 mg PO DAILY 01/17/16 Emtricitabine/Tenofovir Diso 1 tab PO DAILY 01/17/16 [Truvada 200 MG-300 MG] Folic Acid 1 mg PO DAILY #0 tab 01/20/16 Ritonavir [Norvir] 100 mg PO DAILY #0 cap 01/20/16 Thiamine [Vitamin B1 Tab] 100 mg PO DAILY #0 tab 01/20/16 Albuterol Sulfate [Proair Hfa] 2 puff INH Q4 PRN 09/28/17 Enalapril Maleate [Vasotec] 10 mg PO DAILY 09/28/17 Fluticasone/Salmeterol 100/50 1 puff INH BID 09/28/17 [Advair Diskus 100/50] Multivit,Iron,Min 5/Folic Acid 1 tab PO DAILY 09/28/17 [Strovite Forte Caplet] Olopatadine HCl [Pataday] 1 drop OU BID 09/28/17 Omeprazole Magnesium [Prilosec Otc] 40 mg PO QPM 09/28/17 ARIPiprazole [Abilify] 10 mg PO DAILY 30 Days #30 tab 10/04/17 Fluticasone/Salmeterol 250/50 1 puff IH Q12 puff 10/04/17 [Advair Diskus 250/50] Mirtazapine [Remeron] 7.5 mg PO HS 30 Days #15 tab 10/04/17 Ciprofloxacin HCl [Cipro] 500 mg PO BID #20 tab 12/27/17 Ibuprofen [Motrin] 600 mg PO TID 7 Days tab 02/09/18 - Allergies Allergies/Adverse Reactions: Allergies Allergy/AdvReac Type Severity Reaction Status Date / Time No Known Allergies Allergy Verified 02/09/18 18:10 Review of Systems Constitutional: Negative for: Weakness Cardiovascular: Negative for: Chest Pain, Palpitations Respiratory: Negative for: Shortness of Breath Musculoskeletal: Positive for: Leg Pain. Negative for: Neck Pain, Shoulder Pain , Arm Pain Skin: Negative for: Rash Neurological: Negative for: Weakness, Numbness Physical Exam - Reviewed Nursing Documentation Reviewed: Yes Vital Signs Reviewed: Yes - Physical Exam Appears: Positive for: Non-toxic, No Acute Distress Head Exam: Positive for: ATRAUMATIC, NORMAL INSPECTION, NORMOCEPHALIC Neck: Positive for: Normal, Painless ROM Cardiovascular/Chest: Positive for: Regular Rate, Rhythm Respiratory: Positive for: CNT, Normal Breath Sounds Pulses-Dorsalis Pedis (L): 2+ Pulses-Dorsalis Pedis (R): 2+ Back: Positive for: Normal Inspection. Negative for: L CVA Tenderness, R CVA Tenderness Extremity: Positive for: Normal ROM, Tenderness (b/l ankles diffuse with no swelling; ROM full with pain mild), Other (no foot tenderness, no calf or knee tenderness). Negative for: Pedal Edema Neurologic/Psych: Positive for: Alert, Oriented - ECG O2 Sat by Pulse Oximetry: 97 Pulse Ox Interpretation: Normal - Radiology X-Ray: Interpreted by Me, Viewed By Me X-Ray Interpretation: No Acute Disease - Progress ED Course And Treament: 1934: Stable. No acute fx. Fu with podiatry. Meño wrap b/l ankles. AAOx3. Ambulated with no issues. Disposition - Clinical Impression Clinical Impression: Ankle pain - Patient ED Disposition Is Patient to be Admitted: No Counseled Patient/Family Regarding: Studies Performed, Diagnosis, Need For Followup, Rx Given - Disposition Referrals: Podiatry Clinic [Outside] - 02/10/18 Disposition: Routine/Home Disposition Time: 19:36 Condition: STABLE Additional Instructions: Return if not better in 3 days. Prescriptions: Ibuprofen [Motrin] 600 mg PO TID 7 Days tab Instructions: Ankle Sprain (DC) Forms: [employer] ([employer]) Print Language: WOLOF - POA Present On Arrival: Falls Or Trauma
--- NOTE | 2018-02-10 09:56 | RAD ---
PROCEDURE: Bilateral Ankle Radiographs. HISTORY: pain COMPARISON: None FINDINGS: BONES: Right Ankle: Normal. No fracture. Left Ankle: Normal. No fracture. JOINTS: Right Ankle: Normal. No osteoarthritis. Ankle mortise maintained. Talar dome intact. Left Ankle: Normal. No osteoarthritis. Ankle mortise maintained. Talar dome intact. SOFT TISSUES: Right Ankle: Normal. Left Ankle: Normal. OTHER FINDINGS: None. IMPRESSION: Normal bilateral ankle radiographs.
[2018-02-10 11:31] VITALS: PULSE 90; RESP 16; TEMP 98.3; O2SAT 98
[2018-02-10 12:08] VITALS: BP 132/78
== END 2018-02-09 19:45 | disposition home or self-care (01) ==
LOC: H.ER 17:59
DX: M25.572 Pain in left ankle and joints of left foot (principal)
CPT/HCPCS: 73610; 96372; 99284; J1885

== ENCOUNTER 2018-11-22 20:34 | Inpatient (IN) | payer MEDICAID ==
[2018-11-22 20:34] VITALS: BMI 24.9
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
[2018-11-22 21:46] LABS: ALB/GLOB RATIO 1.1 (1.0-2.1); ALBUMIN 3.8 g/dL (3.5-5.0); ALT/SGPT 24 U/L (9-52); AST/SGOT 36 U/L (14-36); BLOOD UREA NITROGEN 17 mg/dl (7-17); CALCIUM 8.3 mg/dL (8.4-10.2); GFR NON-AFRICAN AMERICAN > 60
[2018-11-22 21:48] LABS: BASO % 0.7 % (0.0-2.0); EOS % 1.1 % (0.0-4.0); HEMOGLOBIN 14.8 g/dL (12.0-16.0); LYMPH # 2.6 K/uL (1.0-4.3); LYMPH % 58.3 % (20.0-40.0); MEAN CELL VOLUME 96.2 fl (81.0-99.0); MEAN CORPUSCULAR HEMOGLOBIN 32.9 pg (27.0-31.0); MEAN CORPUSCULAR HGB CONC 34.2 g/dL (33.0-37.0); MEAN PLATELET VOLUME 7.6 fl (7.2-11.7); MONO # 0.4 K/uL (0.0-0.8); MONO % 8.3 % (0.0-10.0); NEUT # 1.4 K/uL (1.8-7.0); NEUT % 31.6 % (50.0-75.0); NRBC % 0.1 % (0.0-0.0); RBC 4.5 Mil/uL (3.80-5.20); WHITE BLOOD COUNT 4.4 K/uL (4.8-10.8)
[2018-11-22 21:51] LABS: SQUAMOUS EPITHIAL 2 /hpf (0-5); URINE BILIRUBIN NEGATIVE (NEGATIVE); URINE BLOOD NEGATIVE (NEGATIVE); URINE CLARITY CLEAR (Clear); URINE COLOR STRAW (YELLOW); URINE GLUCOSE (UA) NEG (NEGATIVE); URINE HYALINE CAST 0-2 /hpf (0-2); URINE LEUKOCYTE ESTERASE NEG Leu/uL (Negative); URINE PROTEIN NEGATIVE (NEGATIVE); URINE UROBILINOGEN 0.2-1.0 mg/dL (0.2-1.0)
[2018-11-22 21:59] LABS: BARBITURATES, UR NEGATIVE (NEGATIVE); BENZODIAZEPINES, UR NEGATIVE (NEGATIVE); OPIATES, UR NEGATIVE (NEGATIVE); PHENCYCLIDINE, UR NEGATIVE (NEGATIVE)
--- NOTE | 2018-11-23 05:35 | ED PDOC ---
- Laboratory Results Result Diagrams: 11/22/18 21:22 11/22/18 21:22 Lab Results: Total Bilirubin 0.4 mg/dl (0.2-1.3) 11/22/18 21:22 AST 36 U/L (14-36) 11/22/18 21:22 ALT 24 U/L (9-52) 11/22/18 21:22 Alkaline Phosphatase 92 U/L (38-126) 11/22/18 21:22 Total Protein 7.2 G/DL (6.3-8.2) 11/22/18 21:22 Albumin 3.8 g/dL (3.5-5.0) 11/22/18 21:22 Globulin 3.4 gm/dL (2.2-3.9) 11/22/18 21: Albumin/Globulin Ratio 1.1 (1.0-2.1) 11/22/18 21:22 Urine Color Straw (YELLOW) 11/22/18 21:22 Urine Clarity Clear (Clear) 11/22/18 21: Urine pH 6.0 (5.0-8.0) 11/22/18 21:22 Ur Specific [place] 1.008 (1.003-1.030) 11/22/18 21:22 Urine Protein Negative mg/dL (NEGATIVE) 11/22/18 21: Urine Glucose (UA) Neg mg/dL (NEGATIVE) 11/22/18 21:22 Urine Ketones Negative mg/dL (NEGATIVE) 11/22/18 21:22 Urine Blood Negative (NEGATIVE) 11/22/18 21:22 Urine Nitrate Negative (NEGATIVE) 11/22/18 21: Urine Bilirubin Negative (NEGATIVE) 11/22/18 21:22 Urine Urobilinogen 0.2-1.0 mg/dL (0.2-1.0) 11/22/18 21:22 Ur Leukocyte Esterase Neg [place]/uL (Negative) 11/22/18 21:22 Urine RBC (Auto) 2 /hpf (0-3) 11/22/18 21:22 Urine Microscopic WBC 1 /hpf (0-5) 11/22/18 21:22 Ur Squamous Epith Cells 2 /hpf (0-5) 11/22/18 21:22 Hyaline Casts 0-2 /hpf (0-2) 11/22/18 21:22 Urine POC: Negative - ECG ECG: Positive for: Viewed By Me (reviewed by ED attending) ECG Rhythm: Positive for: Sinus Rhythm O2 Sat by Pulse Oximetry: 97 (RA) - Radiology X-Ray: Viewed By Me X-Ray Interpretation: No Acute Disease - Progress ED Course And Treament: Case endorsed to investigative writer from [facility] pending sobriety, crisis eval 1:00 Patient sleeping; no distress 2:30 Patient sleeping; no distress 4:00 Patient sleeping; no distress 5:15 Patient evaluated by steel layout worker; to be admitted as per Dr. Ivey ekg, cxr ordered Medical Decision Making Medical Decision Making: Patient medically stable for psych admission Disposition - Clinical Impression Clinical Impression: Alcohol intoxication, Depression - POA Present On Arrival: None - Disposition Disposition: Admitted as In-Patient Disposition Time: 05:34 Condition: STABLE
--- NOTE | 2018-11-23 06:37 | CARD ---
APPROVED REPORT Date of service: 11/23/2018 EKG Measurement Heart [id number] <Conclusion> Normal sinus rhythm Normal ECG
--- NOTE | 2018-11-23 07:45 | RAD ---
Date of service: 11/23/2018 HISTORY: admit COMPARISON: 08/03/2016 TECHNIQUE: Chest PA and lateral FINDINGS: LUNGS: No active pulmonary disease. PLEURA: No significant pleural effusion identified. No pneumothorax apparent. CARDIOVASCULAR: No aortic atherosclerotic calcification present. Normal cardiac size. No pulmonary vascular congestion. OSSEOUS STRUCTURES: No significant abnormalities. VISUALIZED UPPER ABDOMEN: Normal. OTHER FINDINGS: None. IMPRESSION: No active disease. No interval pathology noted.
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
[2018-11-23] MEDS ORDERED: Magnesium Hydroxide Susp 30 ml UD PO PRN (11:39)
[2018-11-23] MEDS ORDERED: DiphenhydrAMINE 50 mg/ml Inj IM PRN (11:39)
[2018-11-23] MEDS ORDERED: Alum-Mag Hydrox-Simethicone Susp (30 mL) PO PRN (11:39)
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
[2018-11-23] MEDS: Pantoprazole 40 mg EC Tab PO SCH (18:19)
[2018-11-23] MEDS: Fluticasone-Salmeterol 250-50mcg Diskus IH SCH (21:25)
[2018-11-24 01:24] VITALS: O2SAT 99
[2018-11-24 08:45] LABS: T4 5.71 ug/dl (5.5-11.0)
[2018-11-24] MEDS: Emtricitabine-Tenofovir 200 mg-300 mg Tab PO SCH (09:21)
[2018-11-24] MEDS: Multivitamin With Minerals Tab PO SCH (09:21)
[2018-11-24] MEDS: Fluticasone-Salmeterol 250-50mcg Diskus IH SCH ×2 (13:15→21:10)
--- NOTE | 2018-11-24 14:57 | PCM.PYCHPN ---
Psychiatric Progress Note - Psychiatric Progress Note Patient seen today, length of contact: pt evaluated discussed with team chart reviewed Patient Chief Complaint: I feel distressed because my shky relation with my son Problems Identified/Issues Discussed: pt evaluated, continues to present with depressed mood and tearful affect, pt reported distressed about unstable relation with her son and inability to see her grandchild, motivational therapy provided , discussed with pt effect of alcohol use on her current family relations and current mental status, also importance of attending [facility] outpatient on discharge , pt continues to feel hopeless with passive suicidal thoughts, discussed increasing dose of remeron pt denied active thoughts of self harm on the unit, denied perceptual disturbances Medical Problems: multiple inpatient hospitalization DSM 5 Symptoms Update: major depression recurrent severe alcohol use disorder Medication Change: Yes Medical Record Reviewed: Yes Mental Status Examination - Cognitive Function Orientation: Person, Place, Situation Memory: Intact Attention: WNL Concentration: WNL Association: WNL Fund of Knowledge: [facility] Decription of patient's judgement and insights: poor insight and judgment - Mood Mood: Depressed, Anxious - Affect Affect: Constricted, Depressed - Speech Speech: Soft - Formal Thought Process Formal Thought Process: Circumstantial Psychotic Thoughts and Behaviors: denied perceptual disturbances - Suicidal Ideation Suicidal Ideation: Yes - Homicidal Ideation Homicidal Ideation: No Goal/Treatment Plan - Goal/Treatment Plan Need for Continued Stay: Severe depression anxiety, Discharge may exacerbated symptoms Progress Toward Problem(s) and Goals/Treatment Plan: continue librium protocol, pt will be monitored for symptoms and signs of alcohol withdrawal increase remeron 15 mg qhs abilify 10mg daily motivational, CBT group and supportive therapy
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
[2018-11-24] MEDS: Pantoprazole 40 mg EC Tab PO SCH (20:25)
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
[2018-11-25] MEDS: Multivitamin With Minerals Tab PO SCH (09:04)
[2018-11-25] MEDS: Emtricitabine-Tenofovir 200 mg-300 mg Tab PO SCH (09:05)
[2018-11-25] MEDS: Fluticasone-Salmeterol 250-50mcg Diskus IH SCH ×2 (12:29→21:17)
--- NOTE | 2018-11-25 15:35 | PCM.PYCHPN ---
Psychiatric Progress Note - Psychiatric Progress Note Patient seen today, length of contact: pt evaluated discussed with team chart reviewed Patient Chief Complaint: I feel better my son visited me Problems Identified/Issues Discussed: pt evaluated,presenting with brighter affect, reported mood less depressed, feeling content as her son visited her also was able to find her a new job, reported improved sleep, no side effects, discussed gradual down taper of li brium, motivational therapy provided in reference to alcohol use pt denied active thoughts of self harm on the unit, denied perceptual disturbances Medical Problems: multiple inpatient hospitalization Medication Change: Yes (decrease librium) Medical Record Reviewed: Yes Mental Status Examination - Cognitive Function Orientation: Person, Place, Situation Memory: Intact Attention: WNL Concentration: WNL Association: WN Fund of Knowledge: [facility] Decription of patient's judgement and insights: poor insight and judgment - Mood Mood: Depressed, Anxious - Affect Affect: Constricted - Speech Speech: Soft - Formal Thought Process Formal Thought Process: Circumstantial Psychotic Thoughts and Behaviors: denied perceptual disturbances - Suicidal Ideation Suicidal Ideation: No - Homicidal Ideation Homicidal Ideation: No Goal/Treatment Plan - Goal/Treatment Plan Need for Continued Stay: Severe depression anxiety, Discharge may exacerbated symptoms Progress Toward Problem(s) and Goals/Treatment Plan: gradual down taper of librium protocol l, pt will be monitored for symptoms and signs of alcohol withdrawal remeron 15 mg qhs abilify 10mg daily motivational, CBT group and supportive therapy
[2018-11-25] MEDS: Pantoprazole 40 mg EC Tab PO SCH (17:30)
[2018-11-26] MEDS: Emtricitabine-Tenofovir 200 mg-300 mg Tab PO SCH (09:40)
[2018-11-26] MEDS: Multivitamin With Minerals Tab PO SCH (09:40)
[2018-11-26] MEDS: Pantoprazole 40 mg EC Tab PO SCH (09:41)
[2018-11-26] MEDS: Fluticasone-Salmeterol 250-50mcg Diskus IH SCH ×2 (09:41→21:07)
--- NOTE | 2018-11-26 11:40 | PCM.PYCHPN ---
Psychiatric Progress Note - Psychiatric Progress Note Patient seen today, length of contact: Pt evaluated, case discussed w/ team, chart reviewed Patient Chief Complaint: "I'm anxious" Problems Identified/Issues Discussed: Patient reports that her mood is starting to improve; she feels less anxious and depressed. She reports improvement in sleep. No current sign/symptoms of ETOH withdrawal. No AH/VH/paranoia/delusions. Psycheducation provided on the dangers of ETOH abuse. Medication Change: Yes (Stop Librium) Medical Record Reviewed: Yes Consults ordered or reviewed: Medicine consult Mental Status Examination - Cognitive Function Orientation: Person, Place, Situation, Time Memory: Intact Attention: WNL Concentration: WNL Association: WNL Fund of Knowledge: WN Decription of patient's judgement and insights: Improving I/J - Mood Mood: Depressed, Anxious - Affect Affect: Constricted - Speech Speech: Soft - Formal Thought Process Formal Thought Process: No Impairment Psychotic Thoughts and Behaviors: No AH/VH/paranoia/delusions - Suicidal Ideation Suicidal Ideation: No - Homicidal Ideation Homicidal Ideation: No Goal/Treatment Plan - Goal/Treatment Plan Need for Continued Stay: Severe depression anxiety, Discharge may exacerbated symptoms Progress Toward Problem(s) and Goals/Treatment Plan: 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
[2018-11-26] MEDS ORDERED: Albuterol 0.083% Inhal Sol (2.5 mg/3 mL) UD INH PRN (12:05)
[2018-11-26] MEDS: Albuterol HFA 90 mcg/actuation (8 g) INH PRN (17:56)
[2018-11-27] MEDS: Albuterol HFA 90 mcg/actuation (8 g) INH PRN (07:16)
[2018-11-27] MEDS: Emtricitabine-Tenofovir 200 mg-300 mg Tab PO SCH (09:07)
[2018-11-27] MEDS: Multivitamin With Minerals Tab PO SCH (09:07)
[2018-11-27] MEDS: Fluticasone-Salmeterol 250-50mcg Diskus IH SCH ×2 (09:07→21:02)
--- NOTE | 2018-11-27 09:56 | PCM.PYCHPN ---
Psychiatric Progress Note - Psychiatric Progress Note Patient seen today, length of contact: Pt evaluated, case discussed w/ team, chart reviewed Patient Chief Complaint: "I'm anxious" Problems Identified/Issues Discussed: Patient continues to report improvement in her mood; she feels less anxious. She reports improvement in sleep. No current sign/symptoms of ETOH withdrawal. No AH/VH/paranoia/delusions. Psycheducation provided on the dangers of ETOH abuse. Medication Change: No Medical Record Reviewed: Yes Consults ordered or reviewed: Medicine consult Mental Status Examination - Cognitive Function Orientation: Person, Place, Situation, Time Memory: Intact Attention: WNL Concentration: WNL Association: WNL Fund of Knowledge: [facility] Decription of patient's judgement and insights: Improving I/J - Mood Mood: Anxious - Affect Affect: Broad - Speech Speech: Appropriate - Formal Thought Process Formal Thought Process: No Impairment Psychotic Thoughts and Behaviors: No AH/VH/paranoia/delusions - Suicidal Ideation Suicidal Ideation: No - Homicidal Ideation Homicidal Ideation: No Goal/Treatment Plan - Goal/Treatment Plan Need for Continued Stay: Severe depression anxiety, Discharge may exacerbated symptoms Progress Toward Problem(s) and Goals/Treatment Plan: 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
[2018-11-27 16:16] VITALS: RESP 20
[2018-11-27] MEDS: Pantoprazole 40 mg EC Tab PO SCH (21:02)
[2018-11-28] MEDS: Albuterol HFA 90 mcg/actuation (8 g) INH PRN (05:44)
[2018-11-28] MEDS: Emtricitabine-Tenofovir 200 mg-300 mg Tab PO SCH (08:46)
[2018-11-28] MEDS: Fluticasone-Salmeterol 250-50mcg Diskus IH SCH (08:47)
[2018-11-28] MEDS: Multivitamin With Minerals Tab PO SCH (08:47)
[2018-11-28 09:22] VITALS: BP 149/99; PULSE 115; TEMP 97.2
--- NOTE | 2018-11-28 10:47 | CARD ---
APPROVED REPORT Date of service: 11/27/2018 EKG Measurement Heart [id number] <Conclusion> Normal sinus rhythm Normal ECG
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
== END 2018-11-28 13:12 | disposition home or self-care (01) | DRG 430 ==
LOC: H.ER 20:34 → H.ERHOLD 11-23 05:13 → H.PSYCH 11-23 08:16
PROVIDERS: ADMIT Psychiatry & Neurology Psychiatry; ATTEND Psychiatry & Neurology Psychiatry
PROC: GZHZZZZ Group Psychotherapy (ICD-10-PCS; principal; 2018-11-23)
PROC: GZ58ZZZ Individual Psychotherapy, Cognitive-Behavioral (ICD-10-PCS; 2018-11-23)
PROC: HZ52ZZZ Individual Psychotherapy for Substance Abuse Treatment, Cognitive-Behavioral (ICD-10-PCS; 2018-11-23)
DX: F33.2 Major depressive disorder, recurrent severe without psychotic features (principal); F10.14 Alcohol abuse with alcohol-induced mood disorder; F14.10 Cocaine abuse, uncomplicated; Z21 Asymptomatic human immunodeficiency virus [HIV] infection status; R45.851 Suicidal ideations; Z62.810 Personal history of physical and sexual abuse in childhood; Z91.410 Personal history of adult physical and sexual abuse; F10.129 Alcohol abuse with intoxication, unspecified; Y90.8 Blood alcohol level of 240 mg/100 ml or more; I10 Essential (primary) hypertension; F41.9 Anxiety disorder, unspecified; J45.909 Unspecified asthma, uncomplicated